=== PATIENT | female | born 1935 | race Caucasian/White ===

== ENCOUNTER 2025-02-01 08:00 | Outpatient (CLI) | payer MEDICARE, OTHER, SELFPAY | END 2025-02-01 08:01 | disposition home or self-care (01) | LOC: WOUND 08:08 | PROVIDERS: Visit Provider Nurse Practitioner Family | DX: I83.028 Varicose veins of left lower extremity with ulcer other part of lower leg (principal); L97.822 Non-pressure chronic ulcer of other part of left lower leg with fat layer exposed; S80.12XA Contusion of left lower leg, initial encounter; V48.4XXA Person boarding or alighting a car injured in noncollision transport accident, initial encounter | CPT/HCPCS: 11042; G0463 ==

== ENCOUNTER 2025-02-07 13:40 | Outpatient (CLI) | payer MEDICARE, OTHER, SELFPAY | END 2025-02-07 13:41 | disposition home or self-care (01) | LOC: WOUND 13:40 | PROVIDERS: Visit Provider Nurse Practitioner Family | DX: I83.028 Varicose veins of left lower extremity with ulcer other part of lower leg (principal); L97.822 Non-pressure chronic ulcer of other part of left lower leg with fat layer exposed; S80.12XA Contusion of left lower leg, initial encounter; V48.4XXA Person boarding or alighting a car injured in noncollision transport accident, initial encounter | CPT/HCPCS: 11042 ==

== ENCOUNTER 2025-02-14 13:29 | Outpatient (CLI) | payer MEDICARE, OTHER, SELFPAY | END 2025-02-14 13:30 | disposition home or self-care (01) | LOC: WOUND 13:30 | PROVIDERS: Visit Provider Nurse Practitioner Family | DX: I83.028 Varicose veins of left lower extremity with ulcer other part of lower leg (principal); L97.822 Non-pressure chronic ulcer of other part of left lower leg with fat layer exposed; S80.12XA Contusion of left lower leg, initial encounter; V48.4XXA Person boarding or alighting a car injured in noncollision transport accident, initial encounter | CPT/HCPCS: 11042 ==

== ENCOUNTER 2025-02-21 14:12 | Outpatient (CLI) | payer MEDICARE, OTHER, SELFPAY | END 2025-02-21 14:13 | disposition home or self-care (01) | LOC: WOUND 14:13 | PROVIDERS: Visit Provider Nurse Practitioner Family | DX: I83.028 Varicose veins of left lower extremity with ulcer other part of lower leg (principal); L97.822 Non-pressure chronic ulcer of other part of left lower leg with fat layer exposed | CPT/HCPCS: 11042 ==

== ENCOUNTER 2025-02-28 13:41 | Outpatient (CLI) | payer MEDICARE, OTHER, SELFPAY | END 2025-02-28 13:42 | disposition home or self-care (01) | LOC: WOUND 13:41 | PROVIDERS: Visit Provider Nurse Practitioner Family | DX: I83.028 Varicose veins of left lower extremity with ulcer other part of lower leg (principal); L97.822 Non-pressure chronic ulcer of other part of left lower leg with fat layer exposed | CPT/HCPCS: 11042 ==

== ENCOUNTER 2025-03-07 13:37 | Outpatient (CLI) | payer MEDICARE, OTHER, SELFPAY | END 2025-03-07 13:38 | disposition home or self-care (01) | LOC: WOUND 13:37 | PROVIDERS: Visit Provider Nurse Practitioner Family | DX: I83.028 Varicose veins of left lower extremity with ulcer other part of lower leg (principal); L97.822 Non-pressure chronic ulcer of other part of left lower leg with fat layer exposed | CPT/HCPCS: 11042 ==

== ENCOUNTER 2025-03-14 14:08 | Outpatient (CLI) | payer MEDICARE, OTHER, SELFPAY | END 2025-03-14 14:09 | disposition home or self-care (01) | LOC: WOUND 14:08 | PROVIDERS: Visit Provider Nurse Practitioner Family | DX: I83.028 Varicose veins of left lower extremity with ulcer other part of lower leg (principal); L97.822 Non-pressure chronic ulcer of other part of left lower leg with fat layer exposed | CPT/HCPCS: 11042 ==

== ENCOUNTER 2025-03-21 13:47 | Outpatient (CLI) | payer MEDICARE, OTHER, SELFPAY | END 2025-03-21 13:48 | disposition home or self-care (01) | LOC: WOUND 13:47 | PROVIDERS: Visit Provider Nurse Practitioner Family | DX: I83.028 Varicose veins of left lower extremity with ulcer other part of lower leg (principal); L97.821 Non-pressure chronic ulcer of other part of left lower leg limited to breakdown of skin | CPT/HCPCS: 97597 ==

== ENCOUNTER 2025-03-28 13:45 | Outpatient (CLI) | payer MEDICARE, OTHER, SELFPAY | END 2025-03-28 13:46 | disposition home or self-care (01) | LOC: WOUND 13:46 | PROVIDERS: Visit Provider Nurse Practitioner Family | DX: I83.028 Varicose veins of left lower extremity with ulcer other part of lower leg (principal); L97.821 Non-pressure chronic ulcer of other part of left lower leg limited to breakdown of skin | CPT/HCPCS: G0463 ==